=== PATIENT | female | born 1980 | race Caucasian/White ===

== ENCOUNTER 2022-02-04 02:15 | Emergency (ER) | payer BC ==
[~2022-02-04] VITALS: Ht 144.8 cm; Wt 86.2 kg
[2022-02-04 02:28] VITALS: BP_SYST 173
--- NOTE | 2022-02-04 02:40 | NUR ---
MD at bedside with patient for evaluation.
[2022-02-04] MEDS ORDERED: ONDANSETRON HCL 4 MG/2 ML VIAL IVP ONE (02:45)
[2022-02-04] MEDS ORDERED: KETOROLAC TROMETHAMINE 30 MG VIAL IVP ONE (02:45)
[2022-02-04] MEDS ORDERED: DIPHENHYDRAMINE INJ 50 MG/ML VIAL IVP ONE (02:45)
[2022-02-04] MEDS ORDERED: NACL 0.9% 1,000 ML IV ONE (02:45)
--- NOTE | 2022-02-04 02:50 | NUR ---
Pt from home with c/o abd pain, HTN, and nausea that started yesterday. Pt has history of HTN. Pt A&O X4, ambulatory and following simple commands. Safety precautions in place and connected to monitor.
--- NOTE | 2022-02-04 02:53 | NUR ---
X-ray being done at bedside.
[2022-02-04 03:12] LABS: BASOPHILS # (AUTO) 0.2 K/uL (0.0-0.2); BASOPHILS % (AUTO) 1.6 % (0.0-2.0); EOSINOPHILS # (AUTO) 0.1 K/uL (0.0-0.4); EOSINOPHILS % (AUTO) 0.7 % (0.0-4.0); HEMOGLOBIN 15.4 g/dL (12.0-16.0); LYMPHOCYTES # (AUTO) 2.1 K/uL (1.0-5.5); LYMPHOCYTES % (AUTO) 20.5 % (20.5-51.5); MEAN CORPUSCULAR HEMOGLOBIN 29 pg (27-31); MEAN CORPUSCULAR HGB CONC 33 % (32-36); MEAN CORPUSCULAR VOLUME 86 fL (79.0-98.0); MONOCYTES # (AUTO) 0.7 K/uL (0.0-1.0); MONOCYTES % (AUTO) 7.2 % (1.7-9.3); NEUTROPHILS # (AUTO) 7.2 K/uL (1.8-7.7); PLATELET COUNT (AUTO) 198 K/uL (130-430); RED BLOOD CELL COUNT(AUTO) 5.37 MIL/uL (4.2-6.2); RED CELL DISTRIBUTION WIDTH 13.7 % (9.0-15.0); WHITE BLOOD COUNT (AUTO) 10.3 K/uL (4.8-10.8)
[2022-02-04 03:37] LABS: ANION GAP 10 (5-15); CALCIUM 8.8 mg/dL (8.4-11.0); CHLORIDE 103 mmol/L (98-107); CREATININE 1.11 mg/dL (0.55-1.30); GLUCOSE 121 mg/dL (70-99); POTASSIUM 3.4 mmol/L (3.5-5.1); UREA NITROGEN, BLOOD 23 mg/dL (8-21)
[2022-02-04 03:44] LABS: ALANINE AMINOTRANSFERASE 103 U/L (12-78); ALBUMIN 3.1 g/dL (3.4-4.8); ASPARTATE AMINOTRANSFERASE 83 U/L (10-37); TOTAL BILIRUBIN 0.6 mg/dL (0.0-1.0)
[2022-02-04 03:49] LABS: GFR AFRICAN AMERICAN 70 mL/min (>90)
--- NOTE | 2022-02-04 03:50 | NUR ---
Pt reporting nausea at this time. Emesis bag provide to pt. ED MD made aware of nausea, no new orders at this time.
--- NOTE | 2022-02-04 04:05 | NUR ---
Pt pulled IV out and actively bleeding. Gauze applied to IV site and bleeding controlled. MD made aware.
[2022-02-04] MEDS ORDERED: ONDA-8 TL (04:08)
[2022-02-04] MEDS ORDERED: HYDR-500 PO (04:08)
[2022-02-04] MEDS ORDERED: IBUP-1969 PO (04:08)
[2022-02-04] MEDS ORDERED: LORazepam 2 MG/ML VIAL IVP ONE (04:15)
--- NOTE | 2022-02-04 04:15 | NUR ---
DR. CUBA AT BEDSIDE UPDATING PATIENT AND FAMILY
--- NOTE | 2022-02-04 04:35 | NUR ---
Patient given written and verbal discharge instructions and verbalizes understanding. ER MD discussed with patient the results and treatment provided. Patient in stable condition. ID arm band removed. IV catheter removed intact and dressing applied, no active bleeding. Rx of ZOFRAN, ATARAX, MOTRIN given. Patient educated on pain management and to follow up with PMD. Pain Scale 0/10. Opportunity for questions provided and answered. Medication side effect fact sheet provided.
[2022-02-04 04:36] VITALS: BP_SYST 165
== END 2022-02-04 04:36 | disposition home or self-care (01) ==
LOC: SED 02:15
DX: R06.02 Shortness of breath (principal); R10.13 Epigastric pain; I10 Essential (primary) hypertension; Z79.899 Other long term (current) drug therapy
CPT/HCPCS: 99285; 96374; 71045; 96375; 96361; 80053; 85025; 84484; 36415; 93005; J1200; J1885; J2405; J7030